=== PATIENT | female | born 1990 ===

== ENCOUNTER 2016-07-27 07:19 | Emergency (ER) | payer SELFPAY ==
[2016-07-27 07:20] VITALS: BMI 22.1
[2016-07-27 07:28] VITALS: TEMP 99.2
[2016-07-27] MEDS ORDERED: Dexamethasone elixir 0.5 MG/5 ML UDC PO STA (07:50)
--- NOTE | 2016-07-27 07:56 | ED PDOC ---
Arrival/HPI - General Historian: Patient - History of Present Illness Time/Duration: < week Symptom Onset: Sudden <Fortino Lozoya - Last Filed: 07/27/16 07:50> <Fortino Daniel - Last Filed: 07/27/16 13:44> - General Chief Complaint: ENT Problem Time Seen by Provider: 07/27/16 07:39 - History of Present Illness Narrative History of Present Illness (Text): 07/27/16 07:50 25 y/o female with no significant hx presenting with complaints of right sided facial swelling. Patient states she awoke with right cheek swelling yesterday. At that time she took Benadryl with some improvement in swelling however she experienced nausea symptoms after taking the medication. She also reports chills and intermittent diaphoresis over the past 2 days. She denies fever, sore throat, cough, shortness of breath or ear pain. Patient takes no medications at this time. (Fortino Lozoya) Past Medical History - Provider Review Nursing Documentation Reviewed: Yes - Past History Past History: No Previous - Infectious Disease Hx of Infectious Diseases: None - Tetanus Immunization Tetanus Immunization: Unknown - Past Medical History Past Medical History: No Previous - Psychiatric Hx Depression: No Hx Substance Use: No - Past Surgical History Past Surgical History: No Previous - Surgical History Other/Comment: [place] Teeth Extraction - Suicidal Assessment Feels Threatened In Home Enviroment: No <Fortino Lozoya - Last Filed: 07/27/16 07:50> Family/Social History - Physician Review Nursing Documentation Reviewed: Yes Family/Social History: Unknown Family HX Smoking Status: Never Smoked Hx Alcohol Use: No Hx Substance Use: No <Fortino Lozoya - Last Filed: 07/27/16 07:50> Allergies/Home Meds <Fortino Lozoya - Last Filed: 07/27/16 07:50> <Fortino Daniel - Last Filed: 07/27/16 13:44> Allergies/Adverse Reactions: Allergies No Known Allergies Allergy (Verified 07/27/16 07:23) Home Medications: Home Meds Medication Instructions Recorded Confirmed No Known Home Med 05/01/16 07/27/16 Review of Systems - Physician Review All systems were reviewed & negative as marked: Yes - Review of Systems Constitutional: Night Sweats ENT: Other (right sided facial swelling ). absent: Hearing Changes, Tinnitus, TMJ Pain, Sore Throat, Sinus Congestion Respiratory: absent: SOB, Cough Neurological: absent: Headache, Dizziness, Focal Weakness, Speech Changes, Facial Droop <Fortino Lozoya - Last Filed: 07/27/16 07:50> Physical Exam Vital Signs Reviewed: Yes Temperature: Afebrile Blood Pressure: Normal Pulse: Regular Respiratory Rate: Normal Appearance: Positive for: Well-Appearing Pain Distress: None Mental Status: Positive for: Alert and Oriented X 3 - Systems Exam Head: Present: Atraumatic, Normocephalic, Other (soft tissue swelling to right buccal area ) Pupils: Present: PERRL Extroacular Muscles: Present: EOMI. No: Gaze Palsy Ears: Present: Normal, NORMAL TM. No: Erythema Mouth: Present: Moist Mucous Membranes Pharnyx: No: ERYTHEMA, Peritonsilar Swelling, Muffled/Hoarse Voice, Soft Palate/ Uvular Edema Neck: Present: Normal Range of Motion Cardiovascular: Present: Regular Rate and Rhythm, Normal S1, S2 Abdomen: Present: Normal Bowel Sounds. No: Tenderness, Distention Upper Extremity: Present: Normal Inspection, Erythema. No: Cyanosis, Edema Lower Extremity: Present: Normal Inspection. No: Edema, CALF TENDERNESS, NORMAL PULSES Neurological: Present: GCS=15, CN II-XII Intact, Speech Normal, Motor Func Grossly Intact, Normal Sensory Function Skin: Present: Warm, Dry. No: Rashes Psychiatric: Present: Alert, Oriented x 3, Normal Insight, Normal Concentration <Fortino Lozoya - Last Filed: 07/27/16 07:50> Vital Signs Temp Pulse Resp BP Pulse Ox 07/27/16 09:00 80 18 109/71 99 07/27/16 07:20 99.2 F 102 H 16 129/78 97 Medical Decision Making <Fortino Lozoya - Last Filed: 07/27/16 07:50> <Fortino Daniel - Last Filed: 07/27/16 13:44> ED Course and Treatment: 07/27/16 07:59 25 y/o female presenting with right sided facial swelling without focal motor deficit or facial palsy. Presentation is likely secondary to viral infection. Patient is not experiencing upper respiratory compromise or throat swelling. - will give Decadron 10mg now - patient instructed to return to the ED if she experiences neurological symptoms such as facial drooping or weakness. (Fortino Lozoya) A 25 year old female with right sided facial swelling since yesterday. In agreement with resident note, which includes further HPI details. Patient was seen and evaluated with resident, came up with plan and treatment together. Almost unappreciable right sided facial swelling on exam. (Fortino Daniel) - Medication Orders Current Medication Orders: Discontinued Medications Dexamethasone (Decadron) 10 mg PO STAT STA Stop: 07/27/16 08:34 Last Admin: 07/27/16 08:35 Dose: 10 MG <Fortino Lozoya - Last Filed: 07/27/16 07:50> - PA / TIE LOADER / Resident Statement MD/DO has reviewed & agrees with the documentation as recorded. MD/DO has examined the patient and agrees with the treatment plan. - Scribe Statement The provider has reviewed the documentation as recorded by the Scribe <Fortino Daniel - Last Filed: 07/27/16 13:44> - Scribe Statement Ladi Haddad Provider Scribe Attestation: All medical record entries made by the Scribe were at my direction and personally dictated by me. I have reviewed the chart and agree that the record accurately reflects my personal performance of the history, physical exam, medical decision making, and the department course for this patient. I have also personally directed, reviewed, and agree with the discharge instructions and disposition. (Fortino Daniel) Disposition/Present on Arrival - Present on Arrival History of DVT/PE: No History of Uncontrolled Diabetes: No Urinary Catheter: No History of Decub. Ulcer: No History Surgical Site Infection Following: None <Fortino Lozoya - Last Filed: 07/27/16 07:50> - Present on Arrival Any Indicators Present on Arrival: No - Disposition Have Diagnosis and Disposition been Completed?: Yes Disposition Time: 09:10 <Fortino Daniel - Last Filed: 07/27/16 13:44> - Disposition Diagnosis: Facial swelling Disposition: HOME/ ROUTINE Patient Problems: Current Active Problems Problem Status Diagnosed Facial swelling Acute Condition: GOOD Discharge Instructions (ExitCare): Lymphadenopathy (ED) Additional Instructions: Please return to the ER if you experience facial weakness or neurological symptoms. Please see your family physician within 2 to 3 days for evaluation of your symptoms. Referrals: PCP,NO [Primary Care Provider] - Follow up with primary Forms: WORK NOTE
[2016-07-27 10:06] VITALS: BP 109/71; PULSE 80; RESP 18; O2SAT 99
== END 2016-07-27 09:10 | disposition home or self-care (01) ==
LOC: ED 07:19
DX: R22.0 Localized swelling, mass and lump, head (principal)
CPT/HCPCS: 99282; J8540

== ENCOUNTER 2016-07-29 07:42 | Emergency (ER) | payer OTHER ==
[2016-07-29 07:54] VITALS: BMI 24.3
[2016-07-29 07:55] VITALS: RESP 16; TEMP 98.1; O2SAT 96
--- NOTE | 2016-07-29 08:08 | ED PDOC ---
Arrival/HPI - General Chief Complaint: ENT Problem Time Seen by Provider: 07/29/16 08:07 Historian: Patient - History of Present Illness Narrative History of Present Illness (Text): 07/29/16 08:28 25 year old female presents with left sided facial swelling today. Patient also reports some discomfort when swallowing. Patient states she had fever and chills two days ago which have since resolved. No sick contacts. No new clothes , new lotions, or new detergents. Denies shortness of breath, chest pain, cough. No other complaints at this time. Time/Duration: < week Symptom Onset: Gradual Symptom Course: Unchanged Modifying Factors (Text): None Associated Symptoms (Text): None Past Medical History - Provider Review Nursing Documentation Reviewed: Yes - Past History Past History: No Previous - Infectious Disease Hx of Infectious Diseases: None - Tetanus Immunization Tetanus Immunization: Unknown - Past Medical History Past Medical History: No Previous - Psychiatric Hx Depression: No Hx Substance Use: No - Past Surgical History Past Surgical History: No Previous - Surgical History Other/Comment: [place] Teeth Extraction - Suicidal Assessment Feels Threatened In Home Enviroment: No Family/Social History - Physician Review Nursing Documentation Reviewed: Yes Family/Social History: Unknown Family HX Smoking Status: Never Smoked Hx Alcohol Use: No Hx Substance Use: No Allergies/Home Meds Allergies/Adverse Reactions: Allergies No Known Allergies Allergy (Verified 07/29/16 07:54) Review of Systems - Physician Review All systems were reviewed & negative as marked: Yes Physical Exam - Physical Exam Narrative Physical Exam (Text): - Review of Systems Constitutional: Normal. absent: Fatigue, Weight Change, Fevers Eyes: Normal ENT: Left sided facial swelling Respiratory: Normal absent: SOB, Cough, Sputum Cardiovascular: Normal absent: Chest pain, Palpitations, Syncope Gastrointestinal: Normal absent: Abdominal pain, Diarrhea, Nausea, Vomiting Genitourinary: Normal. absent: Dysuria, Frequency, Hematuria Musculoskeletal: Normal. absent: Arthralgias, Back Pain, Neck Pain Skin: Normal Neurological: Normal absent: Focal Weakness Endocrine: Normal Hemo/Lymphatic: Normal Psychiatric: Normal - Physical exam Patient appears age appropriate, speaking full sentences without difficulty - Systems Exam Head: Present: Atraumatic, Normocephalic Pupils: Present: PERRL Extraocular Muscles: Present: EOMI Conjunctiva: Present: Normal Mouth: Present: Moist Mucous Membranes Neck: Present: Parotid gland tenderness and swelling, Normal Range of Motion. No: MIDLINE TENDERNESS, Paraspinal Tenderness Respiratory/Chest: Present: Clear to Auscultation, Good Air Exchange. No: Respiratory Distress, Accessory Muscle Use, Tachypneic Cardiovascular: Present: Regular Rate and Rhythm, Normal S1, S2, Peripheral Pulses Present. No: Murmurs Abdomen: Present: Normal Bowel Sounds, No: Tenderness, Peritoneal Signs, Rebound, Guarding, Distention Back: Present: Normal Inspection. No: Midline Tenderness, Paraspinal Tenderness Upper Extremity: Present: Normal Inspection. No: Cyanosis, Edema Lower Extremity: Present: Normal Inspection. No: Edema Neurological: Present: GCS=15, Speech Normal, cranial nerves II through XII fully intact with no cerebellar abnormality, neuro-sensory fully intact. No focal neurological deficits. Skin: Present: Warm, Dry, Normal Color. No: Rashes Lymphatic: Present: OX3, NI, NC Psychiatric: Present: Alert, Oriented x 3, Normal Insight, Normal Concentration Vital Signs Reviewed: Yes Vital Signs Temp Pulse Resp BP Pulse Ox 07/29/16 09:43 61 16 108/67 96 07/29/16 07:54 98.1 F 80 16 117/64 96 Temperature: Afebrile Blood Pressure: Normal Pulse: Regular Respiratory Rate: Normal Appearance: Positive for: Well-Appearing, Non-Toxic, Comfortable Pain Distress: None Mental Status: Positive for: Alert and Oriented X 3 - Systems Exam Ears: Present: Normal, NORMAL TM. No: Erythema, TM Bulging Mouth: Present: Moist Mucous Membranes Pharnyx: Present: Normal. No: ERYTHEMA, EXUDATE, TONSILS ENLARGED, Peritonsilar Swelling, Uvular Deviation, Muffled/Hoarse Voice, [place], Soft Palate/Uvular Edema Nose (External): Present: Atraumatic Nose (Internal): Present: Normal Inspection Medical Decision Making ED Course and Treatment: Impression: 25 year old female presents with left sided facial swelling today. On physical exam, patient has parotid gland tenderness and swelling. Differential Diagnosis include but are not limited to: Mumps vs mono vs sialolith vs parotitis Plan: -- CT maxillofacial -- [place], Mumps labs -- Toradol -- Reassess and disposition Progress Notes: 07/29/16 10:08 CT IMPRESSION: Mild symmetric enlargement of the parotid glands without mass or calculus. Infiltration of superficial subcutaneous soft tissues. Thickened platysmas muscle bilaterally. More extensive infiltration of the fat deep to the platysmas muscle bilaterally. Findings most likely reflect a parotitis. No evidence of abscess. Probable reactive lymphadenopathy bilaterally. No additional abnormality. on reeval, pt states she feels better states she understands to f/u with med. records and her PMD for results of labs ENT referral also given will be dc'd home on abx for parotitis Pt states she understands to return to the ER right away for new or worsening symptoms or for inability to f/u with PMD or specialist as instructed. Patient states that she fully agrees with and understands discharge instructions. States that she agrees with the plan and disposition. Verbalized and repeated discharge instructions and plan. I have given the patient opportunity to ask any additional questions. - RAD Interpretation Radiology Orders: 07/29/16 08:32 MAXILLOFACIAL W/O CONTRAST [CT] Stat - Medication Orders Current Medication Orders: Discontinued Medications Ketorolac Tromethamine (Toradol) 15 mg IM ONCE ONE Stop: 07/29/16 08:46 Last Admin: 07/29/16 08:48 Dose: 15 MG IM Administration Charges Document 07/29/16 08:48 [facility] (Rec: 07/29/16 08:48 [facility] [id number]) Charges for Administration # of IM Administrations 1 - Scribe Statement Trevor Araiza Provider Scribe Attestation: All medical record entries made by the Scribe were at my direction and personally dictated by me. I have reviewed the chart and agree that the record accurately reflects my personal performance of the history, physical exam, medical decision making, and the department course for this patient. I have also personally directed, reviewed, and agree with the discharge instructions and disposition. Disposition/Present on Arrival - Present on Arrival Any Indicators Present on Arrival: No History of DVT/PE: No History of Uncontrolled Diabetes: No Urinary Catheter: No History of Decub. Ulcer: No History Surgical Site Infection Following: None - Disposition Have Diagnosis and Disposition been Completed?: Yes Diagnosis: Parotitis Disposition: HOME/ ROUTINE Disposition Time: 10:10 Patient Plan: Discharge Condition: GOOD Discharge Instructions (ExitCare): Sialoadenitis (ED) Additional Instructions: YOU MUST FOLLOW UP WITH YOUR PRIMARY PHYSICIAN AND MEDICAL RECORDS FOR RESULTS IN 48 HOURS PLEASE RETURN TO THE EMERGENCY DEPARTMENT FOR NEW OR WORSENING SYMPTOMS. RETURN RIGHT AWAY IF YOU CANNOT FOLLOW UP WITH YOUR PRIMARY CARE DOCTOR, CLINIC, OR SPECIALIST IN 1-2 DAYS. Prescriptions: Amoxicillin/Clavulanate [Augmentin 875 MG-125 MG] 1 tab PO BID #20 tab Ibuprofen [Motrin] 600 mg PO Q8 PRN #12 tab PRN Reason: Pain, Moderate (4-7) Referrals: PCP,NO [Primary Care Provider] - Follow up with primary Diallo Beckham DO [Staff Provider] - Follow up with primary Fred Marroquin DO [Staff Provider] - Follow up with primary Forms: WORK NOTE
[2016-07-29 09:50] VITALS: BP 108/67; PULSE 61
--- NOTE | 2016-07-29 09:52 | CT ---
PROCEDURE: CT maxillofacial HISTORY: L. parotid swelling COMPARISON: Not available TECHNIQUE: No intravenous contrast administration Total exam DLP = 719.87 mGy-cm. FINDINGS: There is mild symmetric enlargement of the parotid glands. There is no parotid mass identified. There is no parotid calculus. There is infiltration of the subcutaneous fat superficial to the parotid gland bilaterally. There is thickening of the platysmas muscle bilaterally. There is extensive infiltration of the soft tissues deep to the platysmas muscle bilaterally. There is no lobo fluid collection identified. The submandibular glands are symmetric and normal in appearance. There is no submandibular calculus. The nasopharynx and oropharynx are unremarkable. The parapharyngeal space is clear. The intrinsic muscles of the tongue are symmetric. The epiglottis is normal in appearance. The larynx is normal in appearance. There are shotty level 1 and 2 cervical nodes. Jugulodigastric nodes measure up to 12 mm. These are likely reactive. IMPRESSION: Mild symmetric enlargement of the parotid glands without mass or calculus. Infiltration of superficial subcutaneous soft tissues. Thickened platysmas muscle bilaterally. More extensive infiltration of the fat deep to the platysmas muscle bilaterally. Findings most likely reflect a parotitis. No evidence of abscess. Probable reactive lymphadenopathy bilaterally. No additional abnormality.
[2016-07-30 10:25] LABS: RUBELLA AB (IGG) 1.59 index (())
[2016-07-30 14:02] LABS: MEASLES AB (IGG) 2.68 (>/=1.10); MUMPS VIRUS AB (IGG) >5.00 (>/=1.10)
[2016-07-30 19:07] LABS: VARICELLA-ZOSTER AB (IGG) 1.49 (>/=1.10)
== END 2016-07-29 10:27 | disposition home or self-care (01) ==
LOC: ED 07:42
DX: K11.20 Sialoadenitis, unspecified (principal)
CPT/HCPCS: 70486; 86308; 86735; 86762; 86765; 86787; 96372; 99283; J1885